=== PATIENT | female | born 1965 | race Caucasian/White ===

== ENCOUNTER → 2017-03-04 | Outpatient (CLI) | payer OTHER | LOC: BMCIMAGING 10:56 | PROVIDERS: ATTEND Family Medicine | DX: S69.91XA Unspecified injury of right wrist, hand and finger(s), initial encounter (principal); R93.6 Abnormal findings on diagnostic imaging of limbs; W19.XXXA Unspecified fall, initial encounter ==

== ENCOUNTER → 2017-12-27 | Outpatient (CLI) | payer OTHER | LOC: BMCIMAGING 13:33 | PROVIDERS: ATTEND Internal Medicine Endocrinology, Diabetes & Metabolism | DX: E04.2 Nontoxic multinodular goiter (principal) | CPT/HCPCS: 76536-PO ==

== ENCOUNTER → 2018-06-20 | Outpatient (CLI) | payer OTHER | LOC: BMCIMAGING 13:48 | PROVIDERS: ATTEND Internal Medicine Endocrinology, Diabetes & Metabolism | DX: E04.1 Nontoxic single thyroid nodule (principal); R13.10 Dysphagia, unspecified | CPT/HCPCS: 76536-PO ==